=== PATIENT | male | born 1975 | race Caucasian/White ===

== ENCOUNTER 2024-08-25 11:22 | Day surgery (SDC) | payer OTHER ==
[~2024-08-25] VITALS: Ht 177.8 cm; Wt 78.7 kg
[~2024-08-25 11:22] MED LIST: FENO48TA8 PO; IRBE150T27 PO; METO1TAB33 PO; SPIR1TAB34 PO
[2024-08-25] MEDS ORDERED: propofoL 200 MG/20 ML VIAL As Ordered ONE (12:35)
[2024-08-25 12:42] VITALS: TEMP 97.4
[2024-08-25 12:58] VITALS: BP 132/78; O2SAT 100
== END 2024-08-25 13:07 | disposition home or self-care (01) ==
LOC: M OPP 11:22
PROVIDERS: ATTEND Internal Medicine Gastroenterology
DX: Z12.11 Encounter for screening for malignant neoplasm of colon (principal); Z12.12 Encounter for screening for malignant neoplasm of rectum; D12.5 Benign neoplasm of sigmoid colon; K64.0 First degree hemorrhoids; I10 Essential (primary) hypertension; E78.00 Pure hypercholesterolemia, unspecified; F17.210 Nicotine dependence, cigarettes, uncomplicated; G93.0 Cerebral cysts; Z79.899 Other long term (current) drug therapy

== ENCOUNTER 2024-09-20 08:39 | Day surgery (SDC) | payer OTHER ==
[~2024-09-20] VITALS: Ht 177.8 cm; Wt 77.6 kg
[2024-09-20] MEDS ORDERED: LIDOCAINE 2% 100MG/5ML SDV (FOR ANES.) As Ordered ONE (09:46)
[2024-09-20] MEDS ORDERED: propofoL 200 MG/20 ML VIAL As Ordered ONE (09:46)
[2024-09-20 10:10] VITALS: TEMP 99.1
[2024-09-20 10:19] VITALS: BP 131/77; O2SAT 97
== END 2024-09-20 10:23 | disposition home or self-care (01) ==
LOC: M OPP 08:39
PROVIDERS: ATTEND Internal Medicine Gastroenterology
DX: K63.5 Polyp of colon (principal); K64.0 First degree hemorrhoids; I10 Essential (primary) hypertension; E78.00 Pure hypercholesterolemia, unspecified; G93.0 Cerebral cysts; Z79.899 Other long term (current) drug therapy; F17.210 Nicotine dependence, cigarettes, uncomplicated; Z88.0 Allergy status to penicillin

== ENCOUNTER 2025-08-15 06:52 | Day surgery (SDC) | payer OTHER ==
[~2025-08-15] VITALS: Ht 177.8 cm; Wt 77.8 kg
[~2025-08-15 06:52] MED LIST changes: +IRBE75TA11 PO; +LIDOCAINE 2% 100 MG/5 ML SDV (FOR ANES.) As Ordered ONE
[2025-08-15 08:27] VITALS: TEMP 97.8
[2025-08-15 08:45] VITALS: BP 117/80; O2SAT 100
== END 2025-08-15 08:48 | disposition home or self-care (01) ==
LOC: M OPP 06:52
PROVIDERS: ATTEND Internal Medicine Gastroenterology
DX: D12.6 Benign neoplasm of colon, unspecified (principal); K57.30 Diverticulosis of large intestine without perforation or abscess without bleeding; K64.0 First degree hemorrhoids; Z86.03 Personal history of neoplasm of uncertain behavior; Z88.0 Allergy status to penicillin; Z79.899 Other long term (current) drug therapy; F17.210 Nicotine dependence, cigarettes, uncomplicated